=== PATIENT | female | born 1955 | race Caucasian/White ===

== ENCOUNTER → 2020-06-01 | Outpatient (CLI) | payer BC ==
--- NOTE | 2020-06-01 19:16 | RADIOLOGY REPORT (SQ) ---
EXAM DESCRIPTION: VENOUS UNILATERAL LOWER IMAGES COMPLETED DATE/TIME: 06/01/2020 5:44 pm REASON FOR STUDY: LLE PAIN M79.605 PAIN IN LEFT LEG COMPARISON: None. TECHNIQUE: Dynamic and static mai scale and color images acquired of the left leg venous system. Se lected spectral images acquired with additional compression and augmentation maneuvers. The contralat eral common femoral vein and saphenofemoral junction were also imaged. Images stored on PACS. LIMITATIONS: None. FINDINGS: COMMON FEMORAL: Normal phasicity, compression and augmentation. No visualized echogenic ma terial on ami scale. No defects on color images. FEMORAL: Normal compression and augmentation. No visualized echogenic material on mai scale. No defe cts on color images. POPLITEAL: Normal compression, augmentation. No visualized echogenic material on mai scale. No defec ts on color images. CALF VESSELS: Acute thrombus in the gastrocnemius veins. Normal compression, augmentation. No visual ized echogenic material on mai scale. No defects on color images. GSV and SSV: Acute thrombus in the greater saphenous vein from mid thigh to slightly below the knee. . ANY DEEP VENOUS INSUFFICIENCY: Not evaluated. ANY EVIDENCE OF POPLITEAL CYST: No. OTHER: No other significant finding. CONTRALATERAL COMMON FEMORAL VEIN AND SAPHENOFEMORAL JUNCTION: Normal phasicity, compression and augmentation. No visualized echogenic material on mai scale. No de fects on color images. IMPRESSION: Acute DVT and SVT as described. TECHNICAL DOCUMENTATION: JOB ID: [id number] 2010 [employer]- All Rights Reserved Reading location - IP/workstation name: [email or web address]
== END ==
LOC: SP 16:56
PROVIDERS: ATTEND Physician Assistant
DX: M79.605 Pain in left leg (principal)
CPT/HCPCS: 93971

== ENCOUNTER → 2020-09-22 | Outpatient (CLI) | payer SELFPAY ==
--- NOTE | 2020-09-22 16:11 | RADIOLOGY REPORT (SQ) ---
EXAM DESCRIPTION: VENOUS UNILATERAL LOWER IMAGES COMPLETED DATE/TIME: 09/22/2020 4:00 pm REASON FOR STUDY: LLE DVT, PAIN/SWELLING I82.492 ACUTE EMBOLISM AND THROMBOSIS OF DEEP VEIN OF L LO W COMPARISON: 06/01/2020 TECHNIQUE: Dynamic and static mai scale and color images acquired of the left leg venous system. Se lected spectral images acquired with additional compression and augmentation maneuvers. The contralat eral common femoral vein and saphenofemoral junction were also imaged. Images stored on PACS. LIMITATIONS: None. FINDINGS: COMMON FEMORAL: Normal phasicity, compression and augmentation. No visualized echogenic ma terial on mai scale. No defects on color images. FEMORAL: Normal compression and augmentation. No visualized echogenic material on mai scale. No defe cts on color images. POPLITEAL: Normal compression, augmentation. No visualized echogenic material on mai scale. No defec ts on color images. CALF VESSELS: Normal compression, augmentation. No visualized echogenic material on mai scale. No de fects on color images. GSV and SSV: Normal compression, augmentation. No visualized echogenic material on mai scale. No def ects on color images. ANY DEEP VENOUS INSUFFICIENCY: Not evaluated. ANY EVIDENCE OF POPLITEAL CYST: No. OTHER: No other significant finding. CONTRALATERAL COMMON FEMORAL VEIN AND SAPHENOFEMORAL JUNCTION: Normal phasicity, compression and augmentation. No visualized echogenic material on mai scale. No de fects on color images. IMPRESSION: NO EVIDENCE DVT OR SVT IN THE LEFT LEG. TECHNICAL DOCUMENTATION: JOB ID: [id number] 2010 [employer]- All Rights Reserved Reading location - IP/workstation name: [email or web address]
== END ==
LOC: SP 12:29
PROVIDERS: ATTEND Physician Assistant
DX: M79.605 Pain in left leg (principal)
CPT/HCPCS: 93971